=== PATIENT | female | born 1965 | race American Indian/Alaskan Native ===

== ENCOUNTER 2020-10-20 11:12 | Day surgery (SDC) | payer BC ==
[2020-10-20] MEDS ORDERED: LACTATED RINGERS 1,000 ML ONE (11:26)
[2020-10-20] MEDS ORDERED: HYDROmorphone 1 MG/1 ML INJ IV PRN ×2 (11:44)
[2020-10-20] MEDS ORDERED: ONDANSETRON 4 MG/2 ML INJ IV PRN (11:44)
--- NOTE | 2020-10-20 11:45 | Anesthesia Day of Surgery ---
Anesthesia Day of Surgery - Day of Surgery Patient Examined: Yes Patient H&P Reviewed: Yes Patient is NPO: Yes
[2020-10-20] MEDS ORDERED: LACTATED RINGERS 1,000 ML IV SCH (11:49)
--- NOTE | 2020-10-20 11:58 | Anesthesia Consultation ---
Anesthesia Consult and Med Hx Date of service: 10/20/20 - Airway Anesthetic Teeth Evaluation: Chipped (Broken and missing) ROM Head & Neck: Adequate Mental/Hyoid Distance: Adequate Mallampati Class: Class II Intubation Access Assessment: Good - Pre-Operative Health Status ASA Pre-Surgery Classification: ASA3 Proposed Anesthetic Plan: General - Pre-Anesthesia Comment Pre-Anesthesia Comments: PONV-declines scop patch - Pulmonary Hx Smoking: No Hx Asthma: Yes (NO IHALER USE SINCE 2019) COPD: No Hx Pneumonia: No Hx Sleep Apnea: Yes - Cardiovascular System Hx Hypertension: No Hx Heart Attack/AMI: No Hx Pacemaker: No Hx Internal Defibrillator: No Hx Heart Murmur: No - Central Nervous System Hx Seizures: No Hx Back Pain: Yes Hx Psychiatric Problems: No - Endocrine Hx Renal Disease: Yes (Stones) Hx End Stage Renal Disease: No Hx Cirrhosis: No Hx Liver Disease: No Hx Non-Insulin Dependent Diabetes: No - Hematic Hx Anemia: Yes Hx Sickle Cell Disease: No - Other Systems Hx Alcohol Use: Yes (OCC-WINE) Hx Substance Use: No Hx Cancer: No Hx Obesity: Yes - Additional Comments Anesthesia Medical History Comments: Has Sjogren's and lupus
[2020-10-20] MEDS ORDERED: ONDANSETRON 4 MG/2 ML INJ ONE (12:00)
[2020-10-20] MEDS ORDERED: HYDROmorphone 1 MG/1 ML INJ ONE (12:03)
[2020-10-20] MEDS ORDERED: propofoL 200 MG/20 ML VIAL IV ONE (12:03)
[2020-10-20] MEDS ORDERED: LIDOCAINE MPF (2%) 20 MG/1 ML VIAL 5 ML ONE (12:03)
[2020-10-20 12:29] LABS: Hematocrit 38.9 % (30.3-42.9); Hemoglobin 12.8 gm/dl (10.1-14.3)
--- NOTE | 2020-10-20 12:44 | Post Operative Note ---
Date of procedure: 10/20/20 Pre-op diagnosis: heme micro large l stone Post-op diagnosis: same Findings: stone Procedure: flex cysto left eswl Anesthesia: GETA Surgeon: JENAE ORLANDO Estimated blood loss: none Pathology: none Condition: stable Disposition: PACU
[2020-10-20] MEDS ORDERED: MIDAZOLAM 2 MG/2 ML INJ ONE (12:52)
--- NOTE | 2020-10-20 13:03 | Discharge Summary ---
Short Stay Discharge Plan Activity: other (no straining ) Weight Bearing Status: Full Weight Bearing Diet: low fat, low cholesterol, low salt Special Instructions: other (inc fluids ) Follow up with: HENRIQUE JOSHI MD [Primary Care Provider] - 7 Days OLGA CARRILLO MD [Staff Physician] - 7 Days
--- NOTE | 2020-10-20 14:36 | Operative Report ---
DATE OF SURGERY: 10/20/2020 PREOPERATIVE DIAGNOSIS: Large left renal stone. POSTOPERATIVE DIAGNOSES: Large left renal stone, microscopic hematuria. PROCEDURE: Left lithotripsy. SURGEON: Dr. Ochoa. ANESTHESIA: General. FINDINGS: This is a woman with microscopic hematuria, found to have a large stone in left kidney. She now presents for possible cystoscopy and lithotripsy. All the risks and implications were discussed. DESCRIPTION OF PROCEDURE: The patient was brought to the lithotripsy unit and placed on the operating table. Stone was well localized. She only had a consent for ESWL. We had set up for cystoscopy, but there was some discomfort because it was not on the consent, so that was about to be started, but it was not done. The lithotripsy was done. There was a very dense stone, very large within a couple of calices on the left kidney. Lithotripsy was done at 1 kV, increased to maximum of 7 kV. It barely broke the stone. I think she will need further procedures if she wants to get rid of the stone. The patient tolerated the procedure well. She will have followup cystoscopy as I spoke to Dr. Feng about whether we should do it or not, but the patient was concerned about all the procedures, so based on the consensus in the room, we did not do the cystoscopy. She will get that done in the office. She was brought to recovery room in stable condition. TID: [id number] RECEIPT: [id number] JOHNATHAN
--- NOTE | 2020-10-20 16:12 | Post Anesthesia Evaluation ---
- Post Anesthesia Evaluation Patient Participated: Yes Airway Patent: Yes Stable Respiratory Function: Yes Nausea/Vomiting: No Temp > 96.8F: Yes Pain Manageable: Yes Adequeate Hydration: Yes Anesthesia Complications: No Block Receding Appropriately: Not Applicable Patient on Ventilator: No
[2020-10-20 16:53] VITALS: BP 144/71
== END 2020-10-20 11:13 | disposition home or self-care (01) ==
LOC: OR 11:12
PROVIDERS: ATTEND Urology
DX: N20.0 Calculus of kidney (principal); R31.29 Other microscopic hematuria; J45.909 Unspecified asthma, uncomplicated; G47.30 Sleep apnea, unspecified; E66.9 Obesity, unspecified; M19.90 Unspecified osteoarthritis, unspecified site; Z88.8 Allergy status to other drugs, medicaments and biological substances; Z90.710 Acquired absence of both cervix and uterus; Z87.440 Personal history of urinary (tract) infections; Z79.899 Other long term (current) drug therapy; Z68.39 Body mass index [BMI] 39.0-39.9, adult; Z88.0 Allergy status to penicillin; Z72.89 Other problems related to lifestyle; Z98.890 Other specified postprocedural states; Z86.2 Personal history of diseases of the blood and blood-forming organs and certain disorders involving the immune mechanism
CPT/HCPCS: 36415; 50590; 85014; 85018; J1170; J1956; J2250; J2405; J2704; J7120